=== PATIENT | female | born 1945 | race African-American/Black ===

== ENCOUNTER 2022-02-08 09:22 | Inpatient (IN) | payer MEDICARE, BC ==
[~2022-02-08] VITALS: Ht 152.4 cm; Wt 81.8 kg
[~2022-02-08 09:22] MED LIST: AMLO5TAB4 PO; ATOR20TA65 PO; CALC0.5C7 PO; CARV12.545 PO; CIPR-264 PO; FERR-43 PO; GLIP5TAB12 PO; LEVVL SQ; LOSA50TA41 PO
[2022-02-08] MEDS ORDERED: MORPHINE SULFATE 2 MG/ML CPJ (NOT FOR IM USE) IV ONE (11:30)
[2022-02-08 12:04] LABS: CLARITY URINE TURBID (CLEAR); COLOR URINE YELLOW (YELLOW); KETONES URINE NEGATIVE (NEGATIVE); LEUKOCYTE ESTERASE URINE NEGATIVE (NEGATIVE); NITRITE URINE NEGATIVE (NEGATIVE); OCCULT BLOOD URINE TRACE (NEGATIVE); PH URINE 8.5 (4.5-8.0); PROTEIN URINE 1+ (NEGATIVE); UROBILINOGEN URINE 0.2 E.U./dL (0.2-1.0)
[2022-02-08 12:06] LABS: HEMATOCRIT. 27.1 % (36.0-48.0); HEMOGLOBIN. 8.6 g/dL (12.0-16.0); MEAN CORPUSCULAR HEMOGLOBIN 32.6 pg (28.0-32.0); MEAN CORPUSCULAR VOLUME 102.1 fL (81.0-99.0); MEAN PLATELET VOLUME 9.8 fl (7.4-10.4); PLATELET 369 x1000/uL (130-400); RED BLOOD CELL COUNT 2.66 mill/uL (4.2-5.4); RED CELL DISTRIBUTION WIDTH 15.8 % (11.6-14.6)
[2022-02-08 12:38] LABS: CHLORIDE 92 mEq/L (98-107)
[2022-02-08 14:07] LABS: PLATELET ESTIMATE NORMAL
[2022-02-08 21:45] VITALS: BP 140/64
[2022-02-08] MEDS ORDERED: CHLO25TA2 MT (22:54)
[2022-02-08] MEDS ORDERED: FURO-152 MT (22:54)
[2022-02-08] MEDS ORDERED: MULT-1146 MT (22:54)
[2022-02-08] MEDS ORDERED: HYDROCODONE/ACETAMINOPHEN 5/325MG TABLET PO PRN (23:00)
[2022-02-08] MEDS ORDERED: DEXTROSE 50% WATER 50ML SYRINGE IV PRN (23:00)
[2022-02-08] MEDS ORDERED: POTASSIUM CHLORIDE 20MEQ TABLET SR PO NR (23:30)
[2022-02-09 04:00] VITALS: BP 135/68
[2022-02-09] MEDS: BLOOD SUGAR DIAGNOSTIC STRIP TEST SCH ×4 (05:45→20:23)
[2022-02-09 06:19] LABS: HEMOGLOBIN. 9.5 g/dL (12.0-16.0); MEAN CORPUSCULAR VOLUME 100.7 fL (81.0-99.0); MEAN PLATELET VOLUME 8.5 fl (7.4-10.4); PLATELET 311 x1000/uL (130-400); RED BLOOD CELL COUNT 2.88 mill/uL (4.2-5.4)
[2022-02-09] MEDS: INSULIN LISPRO 100 UNITS/ML SUBCUT SCH ×4 (06:47→20:26)
[2022-02-09 08:00] VITALS: BP 135/62
[2022-02-09] MEDS ORDERED: CEFTRIAXONE 1 G PREMIX 50 ML IV SCH (08:15)
[2022-02-09] MEDS: AMLODIPINE 5MG TABLET PO SCH (09:49)
[2022-02-09] MEDS: CARVEDILOL 12.5MG TABLET PO SCH ×2 (09:49→20:23)
[2022-02-09] MEDS: ACETAMINOPHEN 325MG TABLET PO PRN (09:49)
[2022-02-09] MEDS: CEFTRIAXONE 1,000 MG in DEXTROSE 5% WATER 50 ML IV SCH (11:03)
[2022-02-09 12:00] VITALS: BP 112/55
[2022-02-09] MEDS: SODIUM CHLORIDE 0.45% 1,000 ML IV SCH (12:17)
[2022-02-09 12:29] VITALS: BP 138/58
[2022-02-09 14:25] LABS: PLATELET ESTIMATE NORMAL
[2022-02-09] MEDS ORDERED: POTASSIUM CHLORIDE 20MEQ/PACKET PO NR (15:30)
[2022-02-09 16:00] VITALS: BP 147/96
[2022-02-09] MEDS: ENOXAPARIN 30MG/0.3ML SYR SUBCUT SCH (17:19)
[2022-02-09 20:00] VITALS: BP 140/56
[2022-02-09] MEDS: ATORVASTATIN CALCIUM 20MG TABLET PO SCH (20:23)
[2022-02-10] VITALS: BP 115/48
[2022-02-10 04:00] VITALS: BP 134/57
[2022-02-10] MEDS: SODIUM CHLORIDE 0.45% 1,000 ML IV SCH (05:54)
[2022-02-10] MEDS: BLOOD SUGAR DIAGNOSTIC STRIP TEST SCH ×4 (05:58→21:00)
[2022-02-10] MEDS: INSULIN LISPRO 100 UNITS/ML SUBCUT SCH ×4 (06:03→23:49)
[2022-02-10] MEDS: ACETAMINOPHEN 325MG TABLET PO PRN ×2 (06:04→06:06)
[2022-02-10 06:45] LABS: HEMATOCRIT. 22.9 % (36.0-48.0); HEMOGLOBIN. 7.6 g/dL (12.0-16.0); MEAN CORPUSCULAR HEMOGLOBIN 33.1 pg (28.0-32.0); MEAN CORPUSCULAR VOLUME 100.1 fL (81.0-99.0); MEAN PLATELET VOLUME 8.3 fl (7.4-10.4); PLATELET 286 x1000/uL (130-400); RED BLOOD CELL COUNT 2.28 mill/uL (4.2-5.4)
[2022-02-10] MEDS ORDERED: LIDOCAINE HCL/PF 1% 2ML VIAL ONE (07:50)
[2022-02-10 08:00] VITALS: BP 139/63
[2022-02-10 08:14] LABS: BG CARBOXYHEMOGLOBIN 0.3 % (0.5-1.5); BG DEOXYHEMOGLOBIN 1.1 % (0.0-5.0); BG METHEMOGLOBIN 0.3 % (0.0-1.5); BG OXYGEN SATURATION 98.9 % (92.0-98.5); BG OXYHEMOGLOBIN 98.3 % (94.0-97.0); BG PCO2 58.9 mmHg (35.0-45.0); BG PH 7.427 (7.350-7.450); BG PO2 135.1 mmHg (75.0-100.0); BG SAMPLE SITE RIGHT RADIAL; BG TOTAL HEMOGLOBIN 8.7 g/dL (12.0-18.0); BG VENT MODE NASAL CANNULA
[2022-02-10] MEDS: CARVEDILOL 12.5MG TABLET PO SCH ×2 (08:31→23:48)
[2022-02-10] MEDS: AMLODIPINE 5MG TABLET PO SCH (08:32)
[2022-02-10 11:42] VITALS: BP 130/61
[2022-02-10] MEDS: CEFTRIAXONE 1,000 MG in DEXTROSE 5% WATER 50 ML IV SCH (12:11)
[2022-02-10] MEDS: IPRATROPIUM/ALBUTEROL 0.5-3(2.5)MG/3ML NEB HHN SCH ×2 (13:26→20:16)
[2022-02-10 15:45] VITALS: BP 136/65
[2022-02-10] MEDS: ENOXAPARIN 30MG/0.3ML SYR SUBCUT SCH (16:49)
[2022-02-10 20:00] VITALS: BP 148/62
[2022-02-10] MEDS: BUDESONIDE 0.5MG/2ML NEB HHN SCH (20:16)
[2022-02-10] MEDS ORDERED: NALOXONE HCL 0.4MG/ML VIAL IV PRN (21:00)
[2022-02-10 22:26] LABS: PLATELET ESTIMATE NORMAL
[2022-02-10] MEDS: ATORVASTATIN CALCIUM 20MG TABLET PO SCH (23:48)
[2022-02-11] VITALS: BP 132/60
[2022-02-11] MEDS: IPRATROPIUM/ALBUTEROL 0.5-3(2.5)MG/3ML NEB HHN SCH ×4 (00:57→20:12)
[2022-02-11 04:00] VITALS: BP 122/50
[2022-02-11] MEDS: BLOOD SUGAR DIAGNOSTIC STRIP TEST SCH ×4 (06:36→21:26)
[2022-02-11] MEDS: SODIUM CHLORIDE 0.45% 1,000 ML IV SCH (06:37)
[2022-02-11] MEDS: INSULIN LISPRO 100 UNITS/ML SUBCUT SCH ×4 (06:37→21:22)
[2022-02-11 08:00] VITALS: BP 123/49
[2022-02-11] MEDS: AMLODIPINE 5MG TABLET PO SCH (08:44)
[2022-02-11] MEDS: CARVEDILOL 12.5MG TABLET PO SCH ×2 (08:44→21:24)
[2022-02-11] MEDS: ACETAMINOPHEN 325MG TABLET PO PRN ×2 (08:44→17:36)
[2022-02-11] MEDS: BUDESONIDE 0.5MG/2ML NEB HHN SCH ×2 (08:54→20:12)
[2022-02-11] MEDS: CEFTRIAXONE 1,000 MG in DEXTROSE 5% WATER 50 ML IV SCH (11:51)
[2022-02-11 12:00] VITALS: BP 119/47
[2022-02-11 16:00] VITALS: BP 129/52
[2022-02-11 16:25] LABS: MEAN CORPUSCULAR HEMOGLOBIN 32.7 pg (28.0-32.0); MEAN CORPUSCULAR VOLUME 100.9 fL (81.0-99.0); MEAN PLATELET VOLUME 8.3 fl (7.4-10.4); PLATELET 289 x1000/uL (130-400); RED BLOOD CELL COUNT 2.12 mill/uL (4.2-5.4); RED CELL DISTRIBUTION WIDTH 15.2 % (11.6-14.6)
[2022-02-11 16:47] LABS: HEMOGLOBIN. 6.9 g/dL (12.0-16.0)
[2022-02-11 16:48] LABS: HEMATOCRIT. 21.4 % (36.0-48.0)
[2022-02-11 18:12] LABS: TOTAL IRON BINDING CAPACITY 281 ug/dL (250-450)
[2022-02-11] MEDS ORDERED: POTASSIUM CHLORIDE INJ 40 MEQ in DEXT 5% WATER 250 ML IV ONE (18:15)
[2022-02-11] MEDS ORDERED: POTASSIUM CHLORIDE 20MEQ/PACKET PO NR ×2 (19:00→22:00)
[2022-02-11 20:00] VITALS: BP 126/66
[2022-02-11] MEDS: KCL 20MEQ/100ML X 2 FOR TOTAL KCL 40MEQ/200ML IV SCH ×2 (20:09→22:18)
[2022-02-11 20:24] LABS: PLATELET ESTIMATE NORMAL
[2022-02-11] MEDS ORDERED: EPOETIN ALFA-EPBX 10,000 UNIT/ML VIAL SUBCUT NR (21:00)
[2022-02-11] MEDS: ATORVASTATIN CALCIUM 20MG TABLET PO SCH (21:23)
[2022-02-12] VITALS: BP 126/63
[2022-02-12] MEDS: SODIUM CHLORIDE 0.45% 1,000 ML IV SCH (00:16)
[2022-02-12] MEDS: ACETAMINOPHEN 325MG TABLET PO PRN ×2 (00:50→12:39)
[2022-02-12 04:00] VITALS: BP 139/50
[2022-02-12 06:23] LABS: HEMATOCRIT. 23.1 % (36.0-48.0); HEMOGLOBIN. 7.4 g/dL (12.0-16.0); MEAN CORPUSCULAR HEMOGLOBIN 32.2 pg (28.0-32.0); MEAN CORPUSCULAR VOLUME 100.4 fL (81.0-99.0); MEAN PLATELET VOLUME 8.3 fl (7.4-10.4); PLATELET 301 x1000/uL (130-400); RED BLOOD CELL COUNT 2.31 mill/uL (4.2-5.4); RED CELL DISTRIBUTION WIDTH 15.1 % (11.6-14.6)
[2022-02-12] MEDS: BLOOD SUGAR DIAGNOSTIC STRIP TEST SCH ×4 (06:56→21:00)
[2022-02-12] MEDS: INSULIN LISPRO 100 UNITS/ML SUBCUT SCH ×4 (06:56→22:31)
[2022-02-12] MEDS: IPRATROPIUM/ALBUTEROL 0.5-3(2.5)MG/3ML NEB HHN SCH ×3 (07:42→20:24)
[2022-02-12] MEDS: BUDESONIDE 0.5MG/2ML NEB HHN SCH ×2 (07:42→20:24)
[2022-02-12 08:08] VITALS: BP 136/60
[2022-02-12] MEDS: CARVEDILOL 12.5MG TABLET PO SCH ×2 (08:33→22:32)
[2022-02-12] MEDS: AMLODIPINE 5MG TABLET PO SCH (08:33)
[2022-02-12] MEDS: CEFTRIAXONE 1,000 MG in DEXTROSE 5% WATER 50 ML IV SCH (11:00)
[2022-02-12 12:19] VITALS: BP 135/60
[2022-02-12] MEDS: IRON SUCROSE COMPLEX 100 MG/5 ML ML IV SCH (14:33)
[2022-02-12] MEDS: METHYLPREDNISOLONE SOD SUCC 40 MG/ML VIAL IV SCH ×2 (14:33→22:30)
[2022-02-12 14:56] LABS: BG CARBOXYHEMOGLOBIN 0.5 % (0.5-1.5); BG DEOXYHEMOGLOBIN 5.6 % (0.0-5.0); BG FRACTION INSPIRED OXYGEN 28; BG HCO3 ACT 25.8 mmol/L (22.0-26.0); BG METHEMOGLOBIN 0.2 % (0.0-1.5); BG OXYGEN SATURATION 94.4 % (92.0-98.5); BG OXYHEMOGLOBIN 93.7 % (94.0-97.0); BG PCO2 31.7 mmHg (35.0-45.0); BG PH 7.529 (7.350-7.450); BG PO2 64.8 mmHg (75.0-100.0); BG SAMPLE SITE RIGHT RADIAL; BG VENT MODE NASAL CANNULA
[2022-02-12 15:57] VITALS: BP 133/55
[2022-02-12 17:52] LABS: PLATELET ESTIMATE NORMAL
[2022-02-12 20:00] VITALS: BP 133/61
[2022-02-12] MEDS ORDERED: VANCOMYCIN 1.25GM PMX (XELLIA) 250 ML IV NR (20:00)
[2022-02-12] MEDS: ATORVASTATIN CALCIUM 20MG TABLET PO SCH (22:32)
[2022-02-13] VITALS: BP 127/64
[2022-02-13] MEDS: IPRATROPIUM/ALBUTEROL 0.5-3(2.5)MG/3ML NEB HHN SCH ×4 (01:00→21:02)
[2022-02-13 04:00] VITALS: BP 125/89
[2022-02-13] MEDS: METHYLPREDNISOLONE SOD SUCC 40 MG/ML VIAL IV SCH ×3 (05:42→21:32)
[2022-02-13] MEDS: INSULIN LISPRO 100 UNITS/ML SUBCUT SCH ×4 (05:43→21:29)
[2022-02-13] MEDS: BLOOD SUGAR DIAGNOSTIC STRIP TEST SCH ×4 (05:47→21:07)
[2022-02-13 08:00] VITALS: BP 135/75
[2022-02-13] MEDS: BUDESONIDE 0.5MG/2ML NEB HHN SCH ×2 (08:56→21:00)
[2022-02-13 09:29] LABS: HEMATOCRIT. 22.1 % (36.0-48.0); HEMOGLOBIN. 7.2 g/dL (12.0-16.0); MEAN CORPUSCULAR HEMOGLOBIN 32.9 pg (28.0-32.0); MEAN CORPUSCULAR VOLUME 100.4 fL (81.0-99.0); MEAN PLATELET VOLUME 7.9 fl (7.4-10.4); PLATELET 375 x1000/uL (130-400); RED CELL DISTRIBUTION WIDTH 15.5 % (11.6-14.6)
[2022-02-13] MEDS: AMLODIPINE 5MG TABLET PO SCH (10:09)
[2022-02-13] MEDS: SODIUM CHLORIDE 0.45% 1,000 ML IV SCH ×2 (10:10→15:00)
[2022-02-13] MEDS: CEFTRIAXONE 1,000 MG in DEXTROSE 5% WATER 50 ML IV SCH (10:10)
[2022-02-13] MEDS: CARVEDILOL 12.5MG TABLET PO SCH ×2 (10:20→21:02)
[2022-02-13 12:00] VITALS: BP 108/48
[2022-02-13] MEDS: IRON SUCROSE COMPLEX 100 MG/5 ML ML IV SCH (14:58)
[2022-02-13 16:00] VITALS: BP 133/60
[2022-02-13] MEDS: MEROPENEM 1,000 MG in SODIUM CHLORIDE 0.9% 100 ML IV SCH (18:32)
[2022-02-13 20:00] VITALS: BP 133/59
[2022-02-13] MEDS ORDERED: EPOETIN ALFA-EPBX 10,000 UNIT/ML VIAL SUBCUT NR (21:00)
[2022-02-13] MEDS: VANCOMYCIN 750MG PREMIX 150 ML IV SCH (21:01)
[2022-02-13] MEDS: ATORVASTATIN CALCIUM 20MG TABLET PO SCH (21:02)
[2022-02-13] MEDS: ACETAMINOPHEN 325MG TABLET PO PRN (21:02)
[2022-02-13] MEDS: FLUTICASONE PROPIONATE 50MCG/SPRAY BOTTLE BOTHNSTRLS SCH (21:06)
[2022-02-14] VITALS: BP 126/59
[2022-02-14] MEDS: IPRATROPIUM/ALBUTEROL 0.5-3(2.5)MG/3ML NEB HHN SCH ×4 (01:01→21:18)
[2022-02-14 04:00] VITALS: BP 130/58
[2022-02-14] MEDS: BLOOD SUGAR DIAGNOSTIC STRIP TEST SCH ×4 (06:36→20:37)
[2022-02-14] MEDS: METHYLPREDNISOLONE SOD SUCC 40 MG/ML VIAL IV SCH (06:40)
[2022-02-14] MEDS: INSULIN LISPRO 100 UNITS/ML SUBCUT SCH ×4 (06:41→20:40)
[2022-02-14] MEDS: ACETAMINOPHEN 325MG TABLET PO PRN ×2 (06:50→10:30)
[2022-02-14 07:58] LABS: HEMOGLOBIN. 7.6 g/dL (12.0-16.0); MEAN CORPUSCULAR HEMOGLOBIN 32.5 pg (28.0-32.0); MEAN CORPUSCULAR VOLUME 98.5 fL (81.0-99.0); MEAN PLATELET VOLUME 8.2 fl (7.4-10.4); PLATELET 453 x1000/uL (130-400); RED BLOOD CELL COUNT 2.33 mill/uL (4.2-5.4); RED CELL DISTRIBUTION WIDTH 15.3 % (11.6-14.6)
[2022-02-14 08:00] VITALS: BP 129/61
[2022-02-14 09:51] LABS: PLATELET ESTIMATE SLIGHTLY INCREASED
[2022-02-14] MEDS: AMLODIPINE 5MG TABLET PO SCH (10:23)
[2022-02-14] MEDS: MEROPENEM 1,000 MG in SODIUM CHLORIDE 0.9% 100 ML IV SCH ×2 (10:23→22:43)
[2022-02-14] MEDS: FLUTICASONE PROPIONATE 50MCG/SPRAY BOTTLE BOTHNSTRLS SCH ×2 (10:23→20:37)
[2022-02-14] MEDS: CARVEDILOL 12.5MG TABLET PO SCH ×2 (10:24→20:37)
[2022-02-14 12:00] VITALS: BP 133/60
[2022-02-14] MEDS: SODIUM CHLORIDE 0.45% 1,000 ML IV SCH (13:07)
[2022-02-14] MEDS: IRON SUCROSE COMPLEX 100 MG/5 ML ML IV SCH (13:07)
[2022-02-14] MEDS ORDERED: HYDROCODONE/ACETAMINOPHEN 5/325MG TABLET PO PRN (15:45)
[2022-02-14 16:00] VITALS: BP 131/60
[2022-02-14 20:00] VITALS: BP 148/78
[2022-02-14] MEDS: VANCOMYCIN 750MG PREMIX 150 ML IV SCH (20:36)
[2022-02-14] MEDS: ATORVASTATIN CALCIUM 20MG TABLET PO SCH (20:36)
[2022-02-15] VITALS: BP 143/62
[2022-02-15] MEDS: IPRATROPIUM/ALBUTEROL 0.5-3(2.5)MG/3ML NEB HHN SCH ×4 (03:04→21:27)
[2022-02-15 04:00] VITALS: BP 135/49
[2022-02-15] MEDS: BLOOD SUGAR DIAGNOSTIC STRIP TEST SCH ×4 (06:40→20:56)
[2022-02-15] MEDS: INSULIN LISPRO 100 UNITS/ML SUBCUT SCH ×4 (06:47→20:57)
[2022-02-15 08:00] VITALS: BP 167/63
[2022-02-15] MEDS: AMLODIPINE 5MG TABLET PO SCH (08:22)
[2022-02-15] MEDS: MEROPENEM 1,000 MG in SODIUM CHLORIDE 0.9% 100 ML IV SCH ×2 (08:22→20:54)
[2022-02-15] MEDS: CARVEDILOL 12.5MG TABLET PO SCH ×2 (08:22→20:55)
[2022-02-15] MEDS: FLUTICASONE PROPIONATE 50MCG/SPRAY BOTTLE BOTHNSTRLS SCH ×2 (08:22→21:09)
[2022-02-15] MEDS: SODIUM CHLORIDE 0.45% 1,000 ML IV SCH (08:23)
[2022-02-15 12:00] VITALS: BP 145/64
[2022-02-15 14:29] LABS: PLATELET ESTIMATE INCREASED
[2022-02-15 16:12] VITALS: BP 152/46
[2022-02-15 20:00] VITALS: BP 100/64
[2022-02-15] MEDS: ATORVASTATIN CALCIUM 20MG TABLET PO SCH (20:55)
[2022-02-15] MEDS: ACETAMINOPHEN 325MG TABLET PO PRN (21:06)
[2022-02-16] VITALS: BP 148/78
[2022-02-16] MEDS: IPRATROPIUM/ALBUTEROL 0.5-3(2.5)MG/3ML NEB HHN SCH ×4 (02:06→20:46)
[2022-02-16 04:00] VITALS: BP 149/66
[2022-02-16] MEDS: SODIUM CHLORIDE 0.45% 1,000 ML IV SCH (04:29)
[2022-02-16] MEDS: ACETAMINOPHEN 325MG TABLET PO PRN (04:36)
[2022-02-16] MEDS: BLOOD SUGAR DIAGNOSTIC STRIP TEST SCH ×4 (06:42→19:46)
[2022-02-16] MEDS: INSULIN LISPRO 100 UNITS/ML SUBCUT SCH ×4 (06:42→23:39)
[2022-02-16 08:00] VITALS: BP 155/66
[2022-02-16] MEDS: AMLODIPINE 5MG TABLET PO SCH (09:20)
[2022-02-16] MEDS: CARVEDILOL 12.5MG TABLET PO SCH ×2 (09:20→23:36)
[2022-02-16] MEDS: MEROPENEM 1,000 MG in SODIUM CHLORIDE 0.9% 100 ML IV SCH ×2 (09:22→20:29)
[2022-02-16] MEDS: FLUTICASONE PROPIONATE 50MCG/SPRAY BOTTLE BOTHNSTRLS SCH (09:23)
[2022-02-16] MEDS ORDERED: VANCOMYCIN 500MG PREMIX 100 ML IV SCH (10:00)
[2022-02-16 12:00] VITALS: BP 153/70
[2022-02-16] MEDS ORDERED: INSULIN GLARGINE 100 UNITS/ML SUBCUT SCH (14:00)
[2022-02-16] MEDS: BUDESONIDE 0.5MG/2ML NEB HHN SCH ×2 (14:23→20:44)
[2022-02-16 16:03] VITALS: BP 170/66
[2022-02-16] MEDS ORDERED: CLONIDINE 0.1MG TABLET PO PRN (16:30)
[2022-02-16 20:03] VITALS: BP 149/60
[2022-02-16] MEDS: ATORVASTATIN CALCIUM 20MG TABLET PO SCH (23:36)
[2022-02-16] MEDS: INSULIN GLARGINE 100 UNITS/ML SUBCUT SCH (23:40)
[2022-02-17] VITALS: BP 136/58
[2022-02-17] MEDS: IPRATROPIUM/ALBUTEROL 0.5-3(2.5)MG/3ML NEB HHN SCH ×3 (02:01→14:22)
[2022-02-17] MEDS: ACETAMINOPHEN 325MG TABLET PO PRN ×2 (02:22→09:50)
[2022-02-17] MEDS: BLOOD SUGAR DIAGNOSTIC STRIP TEST SCH ×2 (05:58→11:30)
[2022-02-17 06:00] VITALS: BP 136/50
[2022-02-17] MEDS: INSULIN LISPRO 100 UNITS/ML SUBCUT SCH ×2 (06:02→13:03)
[2022-02-17 08:00] VITALS: BP 130/61
[2022-02-17] MEDS: AMLODIPINE 5MG TABLET PO SCH (08:28)
[2022-02-17] MEDS: CARVEDILOL 12.5MG TABLET PO SCH (08:28)
[2022-02-17] MEDS: MEROPENEM 1,000 MG in SODIUM CHLORIDE 0.9% 100 ML IV SCH (08:28)
[2022-02-17] MEDS: BUDESONIDE 0.5MG/2ML NEB HHN SCH (08:54)
[2022-02-17] MEDS: INSULIN GLARGINE 100 UNITS/ML SUBCUT SCH (09:58)
[2022-02-17 10:30] VITALS: BP 130/61
[2022-02-17] MEDS ORDERED: PREDNISONE 20MG TABLET PO NR (10:30)
[2022-02-17 12:00] VITALS: BP 125/64
[2022-02-17] MEDS ORDERED: FLUTICASONE PROPIONATE 50MCG/SPRAY BOTTLE BOTHNSTRLS SCH (12:00)
[2022-02-17 16:00] VITALS: BP 131/63
== END 2022-02-17 18:18 | disposition hospice, home (50) | DRG 871 ==
LOC: ER 09:55 → 8WST 15:43 → ENRESERV 19:50
PROVIDERS: ADMIT Internal Medicine; ATTEND Internal Medicine
DX: A41.9 Sepsis, unspecified organism (principal); E43 Unspecified severe protein-calorie malnutrition; J96.21 Acute and chronic respiratory failure with hypoxia; N17.9 Acute kidney failure, unspecified; I13.0 Hypertensive heart and chronic kidney disease with heart failure and stage 1 through stage 4 chronic kidney disease, or unspecified chronic kidney disease; N12 Tubulo-interstitial nephritis, not specified as acute or chronic; E11.65 Type 2 diabetes mellitus with hyperglycemia; Z20.822 Contact with and (suspected) exposure to COVID-19; E87.6 Hypokalemia; E11.22 Type 2 diabetes mellitus with diabetic chronic kidney disease; E87.8 Other disorders of electrolyte and fluid balance, not elsewhere classified; E83.52 Hypercalcemia; N18.9 Chronic kidney disease, unspecified; D64.9 Anemia, unspecified; I48.91 Unspecified atrial fibrillation; I50.9 Heart failure, unspecified; M17.0 Bilateral primary osteoarthritis of knee; J43.9 Emphysema, unspecified; Z99.81 Dependence on supplemental oxygen; Z51.5 Encounter for palliative care; Z66 Do not resuscitate; Z68.35 Body mass index [BMI] 35.0-35.9, adult; Z91.81 History of falling; Z87.891 Personal history of nicotine dependence
CPT/HCPCS: 36415; 36600; 71045; 71250; 73030; 73080; 73110; 73562; 74176; 80048; 80053; 80202; 81003; 82375; 82728; 82805; 82962; 83036; 83540; 83550; 83605; 83880; 84145; 84484; 85025; 87426; 92610; 93005; 93970; 94640; 97161; 99285; J0696; J0885; J1650; J1815; J2185; J2270; J2920; J3370; J3480; J3490; J7030; J7050; J7060; J7512; J7626